=== PATIENT | female | born 1960 | race Caucasian/White ===

== ENCOUNTER → 2020-07-16 | Outpatient (CLI) | payer BC, OTHER | LOC: HEART CORB 11:56 | DX: R07.2 Precordial pain (principal); R94.39 Abnormal result of other cardiovascular function study ==

== ENCOUNTER → 2021-07-27 | Outpatient (CLI) | payer BC | LOC: HEART CORB 13:00 | DX: R07.89 Other chest pain (principal); I10 Essential (primary) hypertension; G56.03 Carpal tunnel syndrome, bilateral upper limbs; R20.0 Anesthesia of skin; M79.641 Pain in right hand; M79.642 Pain in left hand; Z00.00 Encounter for general adult medical examination without abnormal findings ==